=== PATIENT | male | born 2000 | race Caucasian/White ===

== ENCOUNTER 2022-11-29 11:01 | Emergency (ER) | payer OTHER ==
[~2022-11-29] VITALS: Ht 182.9 cm; Wt 65.9 kg
[2022-11-29 11:14] VITALS: BP 125/87; TEMP 98.1
[2022-11-29 13:17] VITALS: PULSE 73
== END 2022-11-29 13:15 | disposition home or self-care (01) ==
LOC: COL.ER 11:01
DX: S06.0X0A Concussion without loss of consciousness, initial encounter (principal); W22.09XA Striking against other stationary object, initial encounter